=== PATIENT | female | born 1995 | race American Indian/Alaskan Native ===

== ENCOUNTER 2017-04-02 11:17 | Emergency (ER) | payer SELFPAY ==
[2017-04-02 12:16] VITALS: BMI 22.4
[2017-04-02] MEDS ORDERED: Azithromycin 500 MG in Sodium Chloride 0.9% 250 ML IVPB STA (12:17)
[2017-04-02] MEDS ORDERED: Betamethasone Soluspan 30 mg/5mL Inj Susp IM ONE (12:17)
[2017-04-02] MEDS ORDERED: Lactated Ringer's 1,000 ML IV ONE (12:19)
--- NOTE | 2017-04-02 12:27 | OBHP ---
Datetime: 04/02/2017 11:38 IP Adm Impression: , intrauterine ; No Active Labor; Ruptured Membranes IP Admit Plan Other: Transfer to [facility] Admit Comment, IP Provider: 21 y.o. , LMP 09/06/16(?); KRYSTAL 05/19/17, EGA 33w 2d by sono at 20 weeks (per patient); c/o rupture of membranes at 1030 hours, "while talking with my nephew"; ... "It felt like when I broke my water with my daughter". (+) AFM; denies vaginal bleeding or contractions. Last had sexual intercourse "I don't remember when". Limited care: "[facility] ... I pay for my visits when I can". Last encounter = [facility] 2 months ago. Patient was seen at [facility] 2 weeks ago - threatened labor "they said I was 2 cm dilated" Patient recalls re ceiving steroids, " for the baby's lungs". 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 (+) chlamydia, 2016 PMH: denies PSH: denies Allergies: aspirin, ibuprofen = anaphylaxis and rash Meds: OTC PNV Soc Hx: denies tobacco, illicit drug or EtOH use. With FOB x 3 years Fam Hx: Mother alive 39 y.o. Father alive 35 y.o. - both, no med issues. No known fam h/o cancer P.E.: as above. WD in NAD. Awake, alert, oriented to time, person and place. Pleasant and cooperat alejandra Assessment: 21 y.o. P1, 33w 2d, PPROM. S/P celestone course 2weeks ago. Category 1 tracing. Afebri le, vital signs stable. D/W patient transfer to [facility] for Level III care of . Patient e xpresed an understanding and agrees. Case D/W Xavier Slade, [facility] who accepts the transfer: req uesting administartion of the following prior to transfer: celestone, ampicillin, azithromycin. Fouzia nt is clinically stable. Plan: 1) Celestone 12 mg IM X1 2) Ampicillin 2 gram IVPB x 1 3) Azithromycin 500 mg IVPB x 1 4) IVFs: LR 5) Transfer to [facility] Pelvic Type - PN: Adequate Extremities - PN: Normal Abdomen - PN: Normal Back - PN: Normal Breast - PN: Not Done Lungs - PN: Normal Heart - PN: Normal Thyroid - PN: Not Done Neurologic - PN: Normal HEENT - PN: Normal General - PN: Normal Presentation-Admit: Vertex FHR - Baseline A Provider: 135 Membranes, Provider: Ruptured Contraction Comments Provider: none Comments, ACOG Physical Exam: Skin: warm, dry, (+) tattooes Abdomen: Gravdi. Soft, non tender. Fundal height 31 cm Perineum: wet Spec: (+) nitrazine; minimal pooling Bedside sono: cephalic, (+) FBM; (+) FM; TOI 13.4 cm (MVP 4.6 cm); posterior placenta All other systems reviewed and are negative Gestation - Est Wks by US: 33w 2d Nitrazine Provider: Positive IP Hx Assessment: No Care EGA AdmitDate IP: 33.2 Vital Signs Provider: Reviewed; Within Normal Limits IP Chief Complaint: Suspected ruptured membranes NICHD Variability Prov Fetus A: Moderate 6-25bpm NICHD Accel Fetus A IP Provider: [id number] FHR Category Provider Fetus A: Category I NICHD Decel Fetus A IP Provider: None Dilatation, Provider: 1-2 Effacement, Provider: 50 Station, Provider: -3 Genitourinary Exam: Normal DTRs - PN: Not Done
== END 2017-04-02 12:59 | disposition short-term general hospital (02) ==
LOC: C.EROB 11:17
DX: O47.03 False labor before 37 completed weeks of gestation, third trimester (principal); Z3A.33 33 weeks gestation of pregnancy
CPT/HCPCS: 99283; J0290; J0456; J0702; J7050; J7120